=== PATIENT | female | born 1955 | race Caucasian/White ===

== ENCOUNTER 2016-12-24 20:16 | Emergency (ER) | payer OTHER, SELFPAY ==
[~2016-12-24] VITALS: Ht 175.3 cm; Wt 95.2 kg
[~2016-12-24 20:16] MED LIST: ASPIRIN EC81 MG PO; CITALOPRAM HBR20 MG PO; LIPITOR10 MG PO; NEXIUM20 MG PO; NORCO 5-325 TA1 EACH PO; OMEPRAZOLE20 MG PO; VITAMIN D-32000 UNIT PO
[2016-12-24] MEDS ORDERED: PROZAC20 MG PO (20:26)
[2016-12-24] MEDS ORDERED: CARDIZEM CD180 MG PO (21:55)
--- NOTE | 2016-12-25 19:00 | EKG ---
[facility] [address] [facility] [place] [address] Signed Supraventricular tachycardia Nonspecific ST and T wave abnormality Abnormal ECG When compared with ECG of 03-NOV-2016 14:31, Vent. rate has increased BY 118 BPM Questionable change in QRS duration Confirmed by JERRI PORTER MD ([id number]) on 12/25/2016 6:59:48 PM Electronically Signed By: JERRI PORTER MD 12/25/16 1900 PATIENT NAME: KAMARI WALDROP Electrocardiogram DATE OF : 53 PHYSICIAN: JERRI PORTER MD REPORT #: [id number] REPORT IS CONFIDENTIAL AND NOT TO BE RELEASED WITHOUT AUTHORIZATION
[2017-05-01] MEDS ORDERED: MACULAR HEALTH1 EACH PO (13:26)
== END 2016-12-24 22:00 | disposition home or self-care (01) ==
LOC: ED 20:16
DX: I47.1 Supraventricular tachycardia (principal); F41.9 Anxiety disorder, unspecified; Z79.82 Long term (current) use of aspirin; Z79.899 Other long term (current) drug therapy; Z90.49 Acquired absence of other specified parts of digestive tract; Z90.710 Acquired absence of both cervix and uterus
CPT/HCPCS: 80053; 83735; 84484; 85025; 93005; 93010; 96361; 96374; 99284; J0153; J7030

== ENCOUNTER 2023-01-13 07:07 | Day surgery (SDC) | payer MEDICARE, OTHER ==
[~2023-01-13] VITALS: Ht 175.3 cm; Wt 97.7 kg
[~2023-01-13 07:07] MED LIST changes: +ASPIRIN81 MG PO; +CALCIUM500 MG PO; +CARDIZEM CD180 MG PO; +DICLOFENAC SODI75 MG PO; +HYDROCODON-ACE1 EA11 PO; +MACULAR HEALTH1 EACH PO; +NORCO 7.5-3251 EACH PO; +PROZAC20 MG PO; +SINGULAIR4 MG PO; +ZYRTEC10 MG PO
[2023-01-13 07:24] VITALS: BP 127/78
--- NOTE | 2023-01-13 08:53 | NUR ---
01/13/23 0853 Larissa Thompson 0828 PT ARRIVED TO PACU ON 2L VIA NC, PT WAKES EASILY AND DENIES CONCERNS. PT ENCOURAGED TO PASS GAS/AIR AND PLAN OF CARE DISCUSSED. PT EASILY FALLS BACK TO SLEEP. RESP EVEN AND UNLABORED.
[2023-01-13 09:12] VITALS: BP 111/64
--- NOTE | 2023-01-15 16:13 | PATH ---
[facility] [address] [facility] [place], [place] [address] Signed SPECIMEN(S): A RECTAL POLYPS SPECIMEN SOURCE: A. RECTAL POLYPS CLINICAL HISTORY: History of tubular adenoma and hyperplastic polyps. FINAL PATHOLOGIC DIAGNOSIS: Rectal polyps: - Hyperplastic polyps (three fragments). JVR:[facility] MICROSCOPIC EXAMINATION: Histologic sections of all submitted blocks are examined by light microscopy. These findings, together with the gross examination, support the pathologic diagnosis. GROSS DESCRIPTION: The specimen, labeled and designated "Humberto rectal polyps," is received in formalin and consists of three trent soft tissue fragments, ranging from 0.1 to 0.2 cm. Entirely submitted in (A1). JS (under the direct supervision of a pathologist) The Gross Description was prepared using a voice recognition system. The report was reviewed for accuracy; however, sound-alike word errors, addition and/or deletions may occur. If there is any question about this report, please contact Client Services. PERFORMING LABORATORY: Technical component was performed by [employer], [address] [place] [id number] (CLIA# [id number]). Professional interpretation was performed by [facility], [address] [place] [id number] (CLIA#: [id number]). Diagnostician: Andrés Stubbs MD Pathologist Electronically Signed 01/15/2023 PATIENT NAME: KAMARI WALDROP PATHOLOGY DATE OF : 53 REPORT #: [id number] PHYSICIAN: RASHID NEWSOME PCP: SHANE ENCISO PA-C REPORT IS CONFIDENTIAL AND NOT TO BE RELEASED WITHOUT AUTHORIZATION
--- NOTE | 2023-01-16 14:11 | OR ---
[facility] [address] [place], [place] [address] Signed DATE OF OPERATION: 01/13/2023 SURGEON: Maxine Chase MD PREOPERATIVE DIAGNOSIS: History of polyps in 2017. POSTOPERATIVE DIAGNOSES: 1. Sigmoid and left-sided diverticulosis. 2. Small polyps of rectum x3. PROCEDURE: Total colonoscopy to cecum with cold morcellation polypectomy x3. ANESTHESIA: Intravenous sedation; fentanyl 200 mcg and Versed 7 mg. INDICATION: This 68-year-old white woman, patient of EVERTON Rutledge, underwent colonoscopy six years ago, was found to have two polyps, an adenoma at 18 cm and hyperplastic polyp at 16 cm, both were excised with hot snare polypectomy. She has no family history of colon cancer. She has no symptoms of bleeding, diarrhea or constipation currently. She is admitted at this time to undergo surveillance colonoscopy. She understands the risk of bleeding, infection, and perforation. FINDINGS: The prep was good. Complete colonoscopy was undertaken to the cecum with full intubation of the cecum accomplished. There were numerous diverticula of the sigmoid and left colon, which made passage somewhat delayed. There were three very small polyps of the rectum, which were excised completely. There were no other findings of concern. DESCRIPTION OF PROCEDURE: The patient was brought to the endoscopy suite and placed in the lateral decubitus position, given intravenous sedation to the point of slurred speech and nystagmus. Digital rectal examination was normal. An Olympus video colonoscope was passed in the rectum and manipulated throughout the colon ultimately intubating the cecum itself. The ileocecal valve and appendiceal orifice were normal. The scope was withdrawn from that point and examination throughout showed no sign of abnormality other than extensive diverticular change of the sigmoid Electronically Signed By: MAXINE CHASE MD 01/16/23 1411 PATIENT NAME: KAMARI WALDROP OPERATIVE REPORT DATE OF : 53 REPORT #: [id number] PHYSICIAN: MAXINE CHASE MD PCP: SHANE ENCISO PA-C REPORT IS CONFIDENTIAL AND NOT TO BE RELEASED WITHOUT AUTHORIZATION [facility] [address] [place], [place] [address] Signed and left colon once again. In the rectum on retroflexed view, there were three small polyps, one probably adenomatous, the other two probably hyperplastic, all three were excised and passed in the same container. The scope was straightened, withdrawn and removed. The patient was taken to the recovery room in good condition. CONCLUDING DIAGNOSES: 1. Small polyps x3 of rectum. 2. Extensive sigmoid and left-sided diverticulosis. PLAN: Recommend repeat colonoscopy in 5 years, sooner if clinically indicated. She will return to the ongoing care of EVERTON Rutledge MD BROOKLYNN Choi/STEVEN /[id number] cc: EVERTON Rutledge Copies: ~ Electronically Signed By: MAXINE CHASE MD 01/16/23 1411 PATIENT NAME: KAMARI WALDROP OPERATIVE REPORT DATE OF : 53 REPORT #: [id number] PHYSICIAN: MAXINE CHASE MD PCP: SHANE ENCISO PA-C REPORT IS CONFIDENTIAL AND NOT TO BE RELEASED WITHOUT AUTHORIZATION
== END 2023-01-13 09:23 | disposition home or self-care (01) ==
LOC: OPS 07:07 → DS 07:07 → OPS 08:30 → DS 08:30 → OPS 09:23 → DS 02-13 14:00
PROVIDERS: ATTEND Surgery
PROC: 0DBP8ZX Excision of Rectum, Via Natural or Artificial Opening Endoscopic, Diagnostic (ICD-10-PCS; principal; 2023-01-13 08:30)
DX: Z12.11 Encounter for screening for malignant neoplasm of colon (principal); K57.30 Diverticulosis of large intestine without perforation or abscess without bleeding; K63.5 Polyp of colon; K21.9 Gastro-esophageal reflux disease without esophagitis; E78.5 Hyperlipidemia, unspecified; Z90.711 Acquired absence of uterus with remaining cervical stump; Z90.49 Acquired absence of other specified parts of digestive tract; Z79.899 Other long term (current) drug therapy
CPT/HCPCS: 88305; 99153; G0500; J2250; J3010; J7121

== ENCOUNTER 2023-06-25 05:36 | Emergency (ER) | payer MEDICARE, OTHER ==
[~2023-06-25] VITALS: Ht 175.3 cm; Wt 99.8 kg
[2023-06-25 06:05] LABS: BASOPHILS 0.9 % (0-2); EOSINOPHILS 2.5 % (0-6); HEMATOCRIT 43.7 % (35.0-50.0); HEMOGLOBIN 14.4 g/dL (12.0-18.0); LYMPHOCYTES 33.8 % (24-44); MCV 87.8 fl (81-99); MONOCYTES 8.7 % (0-12); NEUTROPHILS 54.1 % (39-80); PLATELET COUNT 233 K/uL (140-440); RBC 4.97 M/ul (4.3-5.7); RDW 13.9 (10.5-15.0)
[2023-06-25] MEDS ORDERED: METOPROLOL TARTRATE 5 MG/5 ML VIAL IV ONE (06:15)
[2023-06-25] MEDS ORDERED: LACTATED RINGER'S 1,000 ML IV ONE (06:15)
[2023-06-25] MEDS ORDERED: dilTIAZem HCL 25 MG/5 ML VIAL IV ONE (06:15)
[2023-06-25 06:33] LABS: ALBUMIN 3.7 g/dL (3.4-5.0); ALBUMIN/GLOBULIN RATIO 0.95 (1.1-2.4); ALKALINE PHOSPHATASE 108 U/L (46-116); ALT (SGPT) 27 U/L (14-59); ANION GAP 15.6 (7-21); AST (SGOT) 16 U/L (15-37); BILIRUBIN, TOTAL 0.5 ng/dL (0.2-1.0); CARBON DIOXIDE 24 mmol/L (21-32); CHLORIDE 105 mmol/L (98-107); CREATININE, SERUM 0.88 mg/dL (0.55-1.02); GLOMERULAR FILTRATION RATE,EST 71 mL/min (>60); POTASSIUM 3.6 mmol/L (3.5-5.1); PROTEIN, TOTAL 7.6 g/dL (6.4-8.2); TSH, 3RD GENERATION 3.767 uIU/mL (0.358-3.740); UREA NITROGEN 14 mg/dL (7-18)
[2023-06-25 07:26] LABS: BILIRUBIN, URINE NEGATIVE (negative); BLOOD/HGB, URINE NEGATIVE (Negative); KETONE, URINE NEGATIVE (Negative); LEUK ESTERASE, URINE NEGATIVE (negative); NITRITE, URINE NEGATIVE (negative); PH, URINE 6.5 (5-7)
[2023-06-25] MEDS ORDERED: ELIQUIS5 M1 PO (07:42)
[2023-06-25] MEDS ORDERED: ELIQUIS5 MG PO (07:42)
[2023-06-25] MEDS ORDERED: CARDIZEM CD120 MG PO (07:42)
[2023-06-25 07:43] LABS: AMPHETAMINES, URINE NEGATIVE (NEGATIVE); BARBITURATES, URINE NEGATIVE (NEGATIVE); BENZODIAZEPINE, URINE NEGATIVE (NEGATIVE); BUPRENORPHINE, URINE NEGATIVE (NEGATIVE); CANNABINOID, URINE NEGATIVE (NEGATIVE); COCAINE, URINE NEGATIVE (NEGATIVE); ECSTASY, URINE NEGATIVE (NEGATIVE); FENTANYL, URINE NEGATIVE (NEGATIVE); METHADONE, URINE NEGATIVE (NEGATIVE); OPIATES, URINE NEGATIVE (NEGATIVE); OXYCODONE, URINE NEGATIVE (NEGATIVE); PHENCYCLIDINE, URINE NEGATIVE (NEGATIVE)
[2023-06-25] MEDS ORDERED: dilTIAZem HCL 30 MG TAB PO ONE (07:45)
[2023-06-25 08:14] VITALS: BP 103/73
--- NOTE | 2023-06-25 20:57 | EKG ---
[facility] [address] [facility] [place] [address] Signed Sinus tachycardia with premature atrial complexes with aberrant conduction Right bundle branch block Abnormal ECG When compared with ECG of 14-JUN-2020 12:48, aberrant conduction is now present Right bundle branch block is now present Confirmed by Lori Arcos MD () on 06/25/2023 8:57:40 PM Electronically Signed By: LORI ARCOS MD 06/25/232056 PATIENT NAME: KAMARI WALDROP Electrocardiogram DATE OF : 53 PHYSICIAN: LORI ARCOS MD REPORT #: [id number] REPORT IS CONFIDENTIAL AND NOT TO BE RELEASED WITHOUT AUTHORIZATION
--- NOTE | 2023-06-25 20:59 | EKG ---
[facility] [address] [facility] [place] [address] Signed Atrial fibrillation Right bundle branch block Abnormal ECG Confirmed by Lori Arcos MD () on 06/25/2023 8:58:50 PM Electronically Signed By: LORI ARCOS MD 06/25/232058 PATIENT NAME: KAMARI WALDROP Electrocardiogram DATE OF : 53 PHYSICIAN: LORI ARCOS MD REPORT #: [id number] REPORT IS CONFIDENTIAL AND NOT TO BE RELEASED WITHOUT AUTHORIZATION
[2023-06-26 17:50] LABS: THYROXINE 7.36 ug/dL (4.50-11.70)
== END 2023-06-25 08:16 | disposition home or self-care (01) ==
LOC: ED 05:36
PROVIDERS: Internal Medicine
DX: I48.0 Paroxysmal atrial fibrillation (principal); Z87.891 Personal history of nicotine dependence; Z79.899 Other long term (current) drug therapy; Z79.01 Long term (current) use of anticoagulants
CPT/HCPCS: 36415; 71045; 80053; 80307; 81003; 83735; 84436; 84443; 84484; 85025; 93005; 93010; 96361; 96374; 99285-25; J7121